=== PATIENT | female | born 1955 | race Two or more races ===

== ENCOUNTER 2020-12-31 23:16 | Emergency (ER) | payer MEDICARE, MEDICAID ==
[~2020-12-31] VITALS: Ht 167.6 cm; Wt 60.0 kg
[2021-01-01 00:54] LABS: BASOPHILS % 0.7 % (0.0-2.0); HEMATOCRIT. 40.6 % (36.0-48.0); HEMOGLOBIN. 13.2 g/dL (12.0-16.0); LYMPHOCYTES % 15.2 % (20.0-50.0); MEAN CORPUSCULAR HEMOGLOBIN 30.2 pg (28.0-32.0); MEAN CORPUSCULAR VOLUME 92.4 fL (81.0-99.0); MEAN PLATELET VOLUME 8.1 fl (7.4-10.4); MONOCYTES % 7.8 % (2.0-8.0); NEUTROPHILS % 66.3 % (40.0-76.0); PLATELET 256 x1000/uL (130-400); RED BLOOD CELL COUNT 4.39 mill/uL (4.2-5.4)
[2021-01-01 00:58] LABS: CHLORIDE 101 mEq/L (98-107)
[2021-01-01 10:58] VITALS: BP 167/73
== END 2021-01-01 11:00 ==
LOC: ER 23:16
DX: S09.8XXA Other specified injuries of head, initial encounter (principal); E11.9 Type 2 diabetes mellitus without complications; I10 Essential (primary) hypertension; N19 Unspecified kidney failure; W05.0XXA Fall from non-moving wheelchair, initial encounter; Y93.89 Activity, other specified; Y92.129 Unspecified place in nursing home as the place of occurrence of the external cause; Y99.9 Unspecified external cause status; Z86.73 Personal history of transient ischemic attack (TIA), and cerebral infarction without residual deficits
CPT/HCPCS: 36415; 71045; 80053; 85025; 93005; 99285

== ENCOUNTER 2022-06-30 17:25 | Emergency (ER) | payer MEDICARE, MEDICAID ==
[~2022-06-30] VITALS: Ht 157.5 cm; Wt 59.0 kg
[~2022-06-30 17:25] MED LIST: ATOR40TA70 PO; INSU100I28 SUBCUT; INSU100V37 SUBCUT; LEVE500T19 PO; LEVO50TA8 PO
[2022-06-30] MEDS ORDERED: FLUORESCEIN SODIUM 1MG/STRIP BOTHEYE ONE ×2 (18:00→20:30)
[2022-06-30] MEDS ORDERED: TETRACAINE 0.5% OPHTH DROPS 4ML BOTHEYE ONE ×2 (18:00→20:30)
[2022-06-30 18:53] LABS: BASOPHILS % 0.6 % (0.0-2.0); EOSINOPHILS % 5.9 % (0.0-5.0); HEMATOCRIT. 37.7 % (36.0-48.0); HEMOGLOBIN. 12.5 g/dL (12.0-16.0); LYMPHOCYTES % 16.3 % (20.0-50.0); MEAN CORPUSCULAR HEMOGLOBIN 30.6 pg (28.0-32.0); MEAN CORPUSCULAR VOLUME 92.4 fL (81.0-99.0); MEAN PLATELET VOLUME 10.1 fl (7.4-10.4); MONOCYTES % 6.8 % (2.0-8.0); NEUTROPHILS % 70.4 % (40.0-76.0); PLATELET 279 x1000/uL (130-400); RED BLOOD CELL COUNT 4.09 mill/uL (4.2-5.4); RED CELL DISTRIBUTION WIDTH 14.9 % (11.6-14.6)
[2022-06-30 19:03] LABS: CHLORIDE 97 mEq/L (98-107)
[2022-06-30 23:26] LABS: CLARITY URINE TURBID (CLEAR); COLOR URINE YELLOW (YELLOW); KETONES URINE NEGATIVE (NEGATIVE); LEUKOCYTE ESTERASE URINE 2+ (NEGATIVE); NITRITE URINE NEGATIVE (NEGATIVE); OCCULT BLOOD URINE 2+ (NEGATIVE); PROTEIN URINE 4+ (NEGATIVE); SPECIFIC GRAVITY URINE 1.017 (1.005-1.030); UROBILINOGEN URINE 0.2 E.U./dL (0.2-1.0)
[2022-06-30] MEDS ORDERED: CIPROFLOXACIN 0.3% OPHTH SOLN 2.5ML BOTHEYE ONE (23:45)
[2022-07-01 04:30] VITALS: BP 162/48
== END 2022-07-01 04:35 | disposition short-term general hospital (02) ==
LOC: ER 17:25 → SUPCPDRO 22:25 → ER 07-01 04:35 → CANBEDREQ 07-01 09:37
DX: H33.23 Serous retinal detachment, bilateral (principal); H57.13 Ocular pain, bilateral; R94.31 Abnormal electrocardiogram [ECG] [EKG]; I12.0 Hypertensive chronic kidney disease with stage 5 chronic kidney disease or end stage renal disease; E11.22 Type 2 diabetes mellitus with diabetic chronic kidney disease; N18.6 End stage renal disease; Z99.2 Dependence on renal dialysis; Z79.4 Long term (current) use of insulin; Z86.73 Personal history of transient ischemic attack (TIA), and cerebral infarction without residual deficits
CPT/HCPCS: 36415; 71045; 80053; 81003; 83880; 84484; 85025; 87077; 87186; 93005; 99285

== ENCOUNTER 2023-09-07 20:43 | Emergency (ER) | payer MEDICARE, MEDICAID ==
[~2023-09-07] VITALS: Ht 154.9 cm; Wt 65.0 kg
[~2023-09-07 20:43] MED LIST changes: +AMLO10TA80 PO; +CARB10DR EACHEYE; +DOXA2TAB2 PO; +FLUO10CA28 PO; +GABA-529 PO; +HYDR25TA78 PO; +INSNOV SUBCUT; -INSU100I28 SUBCUT; -INSU100V37 SUBCUT; +LEVVL SUBCUT; +LOSA50TA41 PO; +MEMA5TAB42 PO; +SEVE800T8 PO
[2023-09-07 20:53] VITALS: O2SAT 99
[2023-09-07 23:03] LABS: HEMATOCRIT. 32.3 % (36.0-48.0); HEMOGLOBIN. 10.6 g/dL (12.0-16.0); MEAN CORPUSCULAR HEMOGLOBIN 30.5 pg (28.0-32.0); MEAN CORPUSCULAR HGB CONC 32.7 g/dL (31.0-37.0); MEAN CORPUSCULAR VOLUME 93.4 fL (81.0-99.0); MEAN PLATELET VOLUME 8.8 fl (7.4-10.4); PLATELET 375 x1000/uL (130-400); RED BLOOD CELL COUNT 3.46 mill/uL (4.2-5.4); RED CELL DISTRIBUTION WIDTH 16.1 % (11.6-14.6); WHITE BLOOD COUNT 9.3 x1000/uL (4.5-11.0)
[2023-09-07 23:06] LABS: DIFFERENTIAL COMMENT 1
[2023-09-07 23:07] LABS: POTASSIUM 4.3 mEq/L (3.5-5.1)
[2023-09-07 23:08] LABS: CALCIUM 8.9 mg/dL (8.7-10.4)
[2023-09-07 23:21] LABS: PLATELET ESTIMATE NORMAL
[2023-09-07 23:22] LABS: ANISOCYTOSIS 1+; HYPOCHROMASIA 1+
[2023-09-08] MEDS: MORPHINE SULFATE 4 MG/ML INJ (FOR IV/IM USE) IV STA (01:03)
[2023-09-08] MEDS: ONDANSETRON HCL 4MG/2ML INJ IV STA (01:04)
[2023-09-08] MEDS: SODIUM CHLORIDE 0.9% 1,000 ML IV ONE (01:05)
[2023-09-08] MEDS ORDERED: TOPUD MT (01:52)
[2023-09-08 03:38] VITALS: BP 163/60; PULSE 90; RESP 18; TEMP 98
== END 2023-09-08 03:40 ==
LOC: ER 20:43
DX: M54.50 Low back pain, unspecified (principal); M25.552 Pain in left hip; M25.551 Pain in right hip; I12.0 Hypertensive chronic kidney disease with stage 5 chronic kidney disease or end stage renal disease; E11.22 Type 2 diabetes mellitus with diabetic chronic kidney disease; N18.6 End stage renal disease; Z99.2 Dependence on renal dialysis; Z79.899 Other long term (current) drug therapy
CPT/HCPCS: 99285; 72131; 71045; 80048; 83880; 85025; 36415; 72192; 93005; J7030